=== PATIENT | female | born 1980 | race Caucasian/White ===

== ENCOUNTER 2021-08-03 21:02 | Emergency (ER) | payer SELFPAY ==
[~2021-08-03] VITALS: Ht 162.6 cm; Wt 95.3 kg
--- NOTE | 2021-08-03 21:35 | NUR ---
pt bib ra for seizure, pt ambulatory was able to use the restroom and provide a urine sample. Dr. Suarez at bedside for MSE.
--- NOTE | 2021-08-03 22:09 | NUR ---
pt taken to cat scan.
[2021-08-03 22:20] LABS: HEMATOCRIT 33.2 % (31.2-41.9); MEAN CORPUSCULAR HEMOGLOBIN 24.1 uug (24.7-32.8); MEAN CORPUSCULAR VOLUME 75.6 fL (75.5-95.3); PLATELET COUNT (AUTO) 154 K/uL (179-408)
--- NOTE | 2021-08-03 22:20 | NUR ---
pt returned from cat scan.
[2021-08-03 22:22] LABS: CARBON DIOXIDE 24 mmol/L (21-32); CHLORIDE 104 mmol/L (98-107); CREATININE 0.7 mg/dL (0.6-1.3); GLUCOSE 99 mg/dL (74-106); POTASSIUM 3.8 mmol/L (3.5-5.1); UREA NITROGEN, BLOOD 9 mg/dL (7-18)
[2021-08-03 22:27] LABS: CREATINE KINASE, TOTAL 128 U/L (26-192)
[2021-08-03 22:29] LABS: ETHANOL < 3 MG/DL (0-0)
[2021-08-03 22:32] LABS: ALANINE AMINOTRANSFERASE 27 U/L (14-59); ALKALINE PHOSPHATASE 63 U/L (50-136); ASPARTATE AMINOTRANSFERASE 22 U/L (15-37); BILIRUBIN,DIRECT 0.1 mg/dL (0.0-0.2); BILIRUBIN,TOTAL 0.2 mg/dL (0.2-1.0); TOTAL PROTEIN, SERUM 7.8 g/dL (6.4-8.2)
[2021-08-03 22:37] LABS: *AMPHETAMINE, URINE NEGATIVE (NEGATIVE); *CANNABINOID, URINE NEGATIVE (NEGATIVE); *COCCAINE, URINE NEGATIVE (NEGATIVE); *OPIATE, URINE NEGATIVE (NEGATIVE); *PHENCYCLIDINE SCREEN,URINE NEGATIVE (NEGATIVE)
[2021-08-03 23:36] LABS: *BILIRUBIN,URIN NEGATIVE (NEGATIVE); *BLOOD, URINE 3+ (NEGATIVE); *CLARITY,URINE CLOUDY (CLEAR); *COLOR,URINE RED (YELLOW); *KETONES,URINE NEGATIVE (NEGATIVE); *UROBILINOGEN,URINE 0.2 E.U./dl (NORMAL); LEUKOCYTE ESTERASE ,URINE 1+ (NEGATIVE); NITRITE, URINE NEGATIVE (NEGATIVE); UGLUCOSE NEGATIVE (NEGATIVE)
[2021-08-03 23:39] LABS: BACTERIA,URINE NONE SEEN /HPF (NONE SEEN); RBC,URINE TNTC /HPF (0-3); SQUAMOUS EPITHELIAL CELL,UR FEW /HPF (NONE SEEN)
--- NOTE | 2021-08-04 01:44 | NUR ---
Patient discharged to home in stable condition. Written and verbal after care instructions given. Patient verbalizes understanding of instructions. Stressed follow up or return to ER for worsening s/s. pt ambulatory denies pain or dizziness, pt was d/c home with her mother.
[2021-08-04 01:46] VITALS: BP 130/70
== END 2021-08-04 01:46 | disposition home or self-care (01) ==
LOC: ER 21:07
DX: R56.9 Unspecified convulsions (principal); E05.90 Thyrotoxicosis, unspecified without thyrotoxic crisis or storm; S00.512A Abrasion of oral cavity, initial encounter; X58.XXXA Exposure to other specified factors, initial encounter; V49.49XA Driver injured in collision with other motor vehicles in traffic accident, initial encounter; Y92.411 Interstate highway as the place of occurrence of the external cause
CPT/HCPCS: 36415; 70450; 84484; 85025; 87086; 93005; A4663; G0480